=== PATIENT | female | born 1935 | race Caucasian/White ===

== ENCOUNTER 2018-08-21 10:44 | Outpatient (CLI) | payer MEDICARE, OTHER, SELFPAY ==
--- NOTE | 2018-08-21 11:50 | DI.RAD_ITS ---
SYMPTOM/DIAGNOSIS: ? FX LT HAND, PAIN, FOOT PAIN, ? RT GREAT TOE FX RIGHT FOOT: Generalized osteoporosis is demonstrated. There are old healed fractures involving the distal metaphysis of the second through fifth metatarsals. There is an apparent small chip fracture involving the medial portion of the proximal metaphysis of the proximal phalanx of the great toe. There is no evidence of a dislocation. LEFT HAND: Generalized osteoporosis is demonstrated. There is a flexion deformity of the middle finger without evidence of a dislocation. Periarticular degenerative changes involving the hand and wrist are identified. Note is made of a ring obscuring a portion of the proximal phalanx of the ring finger. 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 No dislocation is apparent.
== END 2018-08-21 11:04 ==
PROVIDERS: Visit Provider Family Medicine
DX: M79.671 Pain in right foot (principal); M81.0 Age-related osteoporosis without current pathological fracture; S92.491A Other fracture of right great toe, initial encounter for closed fracture; M79.642 Pain in left hand; M19.042 Primary osteoarthritis, left hand; M21.942 Unspecified acquired deformity of hand, left hand
CPT/HCPCS: 73130; 73630

== ENCOUNTER → 2018-08-27 09:57 | Outpatient (BNVA) | payer MEDICARE, OTHER, SELFPAY | PROVIDERS: Visit Provider Orthopaedic Surgery | DX: M79.671 Pain in right foot (principal); M24.542 Contracture, left hand | CPT/HCPCS: 99202; 99214 ==